=== PATIENT | male | born 1975 | race Two or more races ===

== ENCOUNTER 2017-09-02 07:32 | Emergency (ER) | payer SELFPAY ==
[2017-09-02 07:38] VITALS: BP 127/74
--- NOTE | 2017-09-02 07:59 | EDPHY ---
H & P Stated Complaint: fell skateboarding hit head no loc- Lac to forehead Time Seen by Provider: 09/02/17 07:45 HPI/ROS: CHIEF COMPLAINT: Facial laceration HISTORY OF PRESENT ILLNESS: 42-year-old male presents with a facial laceration. He was skateboarding just prior to arrival when he hit a rock in the road. He fell forward and struck his head on the pavement. He sustained a left-sided facial laceration. Not wearing a helmet. He did not lose consciousness and does not have a headache or neck pain. No other injuries. - Personal History Current Tetanus/Diphtheria Vaccine: Unsure Current Tetanus Diphtheria and Acellular Pertussis (TDAP): Unsure - Medical/Surgical History Hx Asthma: No Hx Chronic Respiratory Disease: No Hx Diabetes: No Hx Cardiac Disease: No Hx Renal Disease: No Hx Cirrhosis: No Hx Alcoholism: No Hx HIV/AIDS: No Hx Splenectomy or Spleen Trauma: No Other PMH: denies - Social History Smoking Status: Current some day smoker - Physical Exam Exam: General Appearance: Alert, pleasant Head: Y shaped irregular 2.5 cm laceration just lateral to the left eyebrow Eyes: No conjunctival erythema, PERRLA, EOMI ENT, Mouth: no oral trauma, no facial bony tenderness Neck: Nontender, full range of motion without pain Respiratory: No chest wall tenderness Cardiovascular: Regular rate and rhythm Abdomen: Abdomen is soft and nontender Skin: no abrasions Back: No midline T/L/S tenderness Extremities: no extremity tenderness or deformity Neurological: A&Ox3, normal motor function, normal sensory exam, cranial nerves intact Psychiatric: Mood and affect normal Constitutional: Initial Vital Signs Temperature (C) 37.5 C 09/02/17 07:35 Heart Rate 112 H 09/02/17 07:35 Respiratory Rate 18 09/02/17 07:35 Blood Pressure 127/74 H 09/02/17 07:35 O2 Sat (%) 97 09/02/17 07:35 O2 Delivery Mode Room Air Allergies/Adverse Reactions: No Known Allergies Allergy (Unverified 09/02/17 07:35) Home Medications: Medication Instructions Recorded NK [No Known Home Meds] 09/02/17 Medical Decision Making Procedures: Procedure: Laceration repair. The 2.5 cm laceration on the left periorbital area was anesthetized using lidocaine. The wound was irrigated, draped and explored to its base with a gloved finger. There were no deep structures involved. No foreign body palpable. The wound was repaired with 6 0 nylon. The wound repair was simple. Departure - Departure Disposition: Home, Routine, Self-Care Clinical Impression: Facial laceration Qualifiers: Encounter type: initial encounter Qualified Code(s): S01.81XA - Laceration without foreign body of other part of head, initial encounter Condition: Good Instructions: Facial Laceration (ED) Additional Instructions: Return for suture removal in 5 days. Referrals: Albino Philip MD [[facility] [place] Primary Care Provider] - Follow Up Only If Needed
== END 2017-09-02 08:28 | disposition home or self-care (01) ==
PROC: 0HQ1XZZ Repair Face Skin, External Approach (ICD-10-PCS; principal; 2017-09-02)
DX: S01.81XA Laceration without foreign body of other part of head, initial encounter (principal); F17.200 Nicotine dependence, unspecified, uncomplicated; V00.131A Fall from skateboard, initial encounter; Y92.410 Unspecified street and highway as the place of occurrence of the external cause; Y99.8 Other external cause status; Y93.51 Activity, roller skating (inline) and skateboarding